=== PATIENT | female | born 1935 | race Asian ===

== ENCOUNTER 2023-12-31 16:10 | Inpatient (IN) | payer OTHER ==
[~2023-12-31] VITALS: Ht 152.4 cm; Wt 47.2 kg
[2023-12-31 16:10] VITALS: BP_SYST 144; PULSE 141; RESP 24; TEMP 97.3; O2SAT 100
[2023-12-31] MEDS ORDERED: LIP40 (16:33)
[2023-12-31] MEDS ORDERED: ASPI-859 (16:33)
[2023-12-31] MEDS ORDERED: METO25CA (16:33)
[2023-12-31] MEDS ORDERED: AMIO200T66 (16:33)
[2023-12-31] MEDS: KETOROLAC TROMETHAMINE 15 MG VIAL IVP ONE (16:47)
[2023-12-31] MEDS: NACL 0.9% 1,000 ML IV ONE (16:47)
[2023-12-31] MEDS ORDERED: RIVA15TA (16:54)
[2023-12-31] MEDS ORDERED: INSU100V26 (16:54)
[2023-12-31] MEDS ORDERED: VALS160T29 (16:54)
[2023-12-31] MEDS: IPRATROPIUM/ALBUTEROL SULFATE 3 ML AMPUL.NEB (DUONEB) INH ONE (16:57)
[2023-12-31 17:02] LABS: ABG O2 SAT% ESTIMATE 99.4 % (94.0-100.0); BLOOD GAS BASE EXCESS 4.4 mmol/L (-3.0-3.0); BLOOD GAS HCO3 26.1 mmol/L (21.0-27.0); BLOOD GAS PCO2 30.7 mmHg (35.0-45.0); BLOOD GAS PO2 178.7 mmHg (75.0-100.0)
[2023-12-31 17:06] LABS: ALLEN'S TEST POSITIVE (P); BLOOD GAS PH 7.547 (7.350-7.450)
[2023-12-31 17:13] LABS: HEMATOCRIT 29.4 % (36-48); HEMOGLOBIN 9.8 g/dL (12.0-16.0); MEAN CORPUSCULAR HEMOGLOBIN 30 pg (27-31); MEAN CORPUSCULAR HGB CONC 33 % (32-36); MEAN CORPUSCULAR VOLUME 90 fL (79.0-98.0); PLATELET COUNT (AUTO) 347 K/uL (130-430); RED BLOOD CELL COUNT(AUTO) 3.28 MIL/uL (4.2-6.2); RED CELL DISTRIBUTION WIDTH 14.9 % (9.0-15.0); WHITE BLOOD COUNT (AUTO) 20.8 K/uL (4.8-10.8)
[2023-12-31 17:29] LABS: INR 1.3 (0.8-1.2); PROTHROMBIN TIME 13.4 SECS (9.5-12.5)
[2023-12-31 17:35] LABS: ALANINE AMINOTRANSFERASE 134 U/L (12-78); ALBUMIN 1.7 g/dL (3.4-4.8); ANION GAP 4 (5-15); ASPARTATE AMINOTRANSFERASE 172 U/L (10-37); CALCIUM 7.8 mg/dL (8.4-11.0); CARBON DIOXIDE 31 mmol/L (23-29); CHLORIDE 99 mmol/L (98-107); CREATININE 1.12 mg/dL (0.55-1.30); GLUCOSE 274 mg/dL (74-106); POTASSIUM 4.7 mmol/L (3.5-5.1); SODIUM SERUM 134 mmol/L (136-145); TOTAL BILIRUBIN 1.9 mg/dL (0.0-1.0); TOTAL PROTEIN, SERUM 5.8 g/dL (6.4-8.3); UREA NITROGEN, BLOOD 32 mg/dL (8-21)
[2023-12-31] MEDS ORDERED: PIPERACILLIN/TAZOBACTAM 3.375 GM/VIAL (ZOSYN) IV ONE ×2 (18:01)
[2023-12-31 18:03] LABS: BAND % (MANUAL) 2 % (0-6); LYMPHOCYTES % (MANUAL) 8 % (20-46)
[2023-12-31 18:04] LABS: ANISOCYTOSIS 1+; BASOPHILS % (MANUAL) 0 % (0-2); EOSINOPHILS % (MANUAL) 0 % (0-7); MONOCYTES % (MANUAL) 5 % (0-11); PLATELET ESTIMATE ADEQUATE (ADEQUATE); POLYCHROMASIA 1+
[2023-12-31 18:05] LABS: OVALOCYTES FEW
[2023-12-31] MEDS: PIPERACILLIN/TAZO 3.375 GM in NS 50 ML IV ONE (18:17)
[2023-12-31] MEDS ORDERED: AZITHROMYCIN 500 MG/VIAL (ZITHROMAX) IV ONE (18:49)
[2023-12-31] MEDS: DEXAMETHASONE SOD PHOSPHATE 10 MG/ML VIAL IVP ONE (18:57)
[2023-12-31] MEDS: AZITHROMYCIN 500 MG in NS 250 ML IV ONE (18:57)
[2023-12-31 19:00] LABS: INFLUENZA TYPE A Negative (NEGATIVE); INFLUENZA TYPE B NEGATIVE (NEGATIVE)
[2023-12-31 20:30] LABS: BILIRUBIN,URINE 1+ (NEGATIVE); BLOOD, URINE 3+ (NEGATIVE); COLOR,URINE BROWN (YELLOW); GLUCOSE,URINE 1+ (NEGATIVE); KETONES,URINE NEGATIVE (NEGATIVE); LEUKOCYTE ESTERASE ,URINE TRACE (NEGATIVE); NITRITE, URINE NEGATIVE (NEGATIVE); PH,URINE 6.5 (5.0-8.0); PROTEIN URINE 1+ (NEGATIVE)
[2023-12-31] MEDS ORDERED: ONDANSETRON HCL 4 MG/2 ML VIAL IVP PRN (20:30)
[2023-12-31] MEDS ORDERED: ZOLPIDEM TARTRATE 5 MG TABLET PO PRN (20:30)
[2023-12-31] MEDS ORDERED: MUPIROCIN 2% TOPICAL OINTMENT 22 GM NS PRN (20:30)
[2023-12-31] MEDS ORDERED: ACETAMINOPHEN 325 MG TABLET PO PRN (20:30)
[2023-12-31] MEDS ORDERED: MAGNESIUM SULFATE 50 ML IV PRN (20:30)
[2023-12-31 20:41] LABS: CLARITY/URINE HAZY (CLEAR)
[2023-12-31 20:50] VITALS: BP_SYST 144; PULSE 141; O2SAT 98
[2023-12-31 20:56] LABS: RBC,URINE 20-50 /HPF (0-3)
[2023-12-31 20:57] LABS: BACTERIA,URINE MODERATE /HPF (None Seen)
[2023-12-31] MEDS ORDERED: METOPROLOL TARTRATE 25 MG TABLET ONE (21:46)
[2023-12-31] MEDS: METOPROLOL TARTRATE 50 MG TABLET PO SCH (21:49)
[2023-12-31] MEDS ORDERED: INSULIN REGULAR, HUMAN 10 UNITS/0.1 ML, 3 ML VIAL ONE (21:50)
[2023-12-31] MEDS: INSULIN REGULAR, HUMAN 100 UNITS/ML, 3 ML VIAL (humuLIN R) SUBCUT PRN (21:53)
[2023-12-31] MEDS: FUROSEMIDE 40 MG/4 ML VIAL IVP ONE (21:53)
[2023-12-31] MEDS: NACL 0.9% 1,000 ML IV SCH (22:06)
[2024-01-01] MEDS ORDERED: PIPERACILLIN/TAZOBACTAM 3.375 GM/VIAL (ZOSYN) IV ONE ×2 (02:11→16:57)
[2024-01-01] MEDS: PIPERACILLIN/TAZO 3.375 GM in D5W 50 ML IV SCH (02:27)
[2024-01-01] MEDS: LORazepam 2 MG/ML VIAL IVP PRN (06:14)
[2024-01-01 07:27] LABS: HEMATOCRIT 30.2 % (36-48); MEAN CORPUSCULAR HEMOGLOBIN 30 pg (27-31); MEAN CORPUSCULAR HGB CONC 33 % (32-36); MEAN CORPUSCULAR VOLUME 91 fL (79.0-98.0); PLATELET COUNT (AUTO) 379 K/uL (130-430); RED BLOOD CELL COUNT(AUTO) 3.32 MIL/uL (4.2-6.2); RED CELL DISTRIBUTION WIDTH 15.2 % (9.0-15.0); WHITE BLOOD COUNT (AUTO) 19.8 K/uL (4.8-10.8)
[2024-01-01 07:41] LABS: ALANINE AMINOTRANSFERASE 126 U/L (12-78); ALBUMIN 1.8 g/dL (3.4-4.8); ANION GAP 7 (5-15); ASPARTATE AMINOTRANSFERASE 132 U/L (10-37); BILIRUBIN,DIRECT 0.9 mg/dL (0.0-0.3); CARBON DIOXIDE 28 mmol/L (23-29); CHLORIDE 101 mmol/L (98-107); CREATININE 1.02 mg/dL (0.55-1.30); GLUCOSE 226 mg/dL (74-106); POTASSIUM 4.6 mmol/L (3.5-5.1); SODIUM SERUM 136 mmol/L (136-145); TOTAL BILIRUBIN 1.7 mg/dL (0.0-1.0); TOTAL PROTEIN, SERUM 5.9 g/dL (6.4-8.3); UREA NITROGEN, BLOOD 29 mg/dL (8-21)
[2024-01-01] MEDS ORDERED: ATORVASTATIN 20 MG TABLET PO SCH (09:00)
[2024-01-01] MEDS: AMIODARONE HCL 200 MG TABLET PO SCH (09:01)
[2024-01-01] MEDS: ASPIRIN 81 MG TABLET(ECOTRIN) PO SCH (09:02)
[2024-01-01] MEDS: LOSARTAN POTASSIUM 50 MG TABLET (COZAAR) PO SCH (09:02)
[2024-01-01 09:57] LABS: ANISOCYTOSIS 1+; BASOPHILS % (MANUAL) 0 % (0-2); EOSINOPHILS % (MANUAL) 0 % (0-7); LYMPHOCYTES % (MANUAL) 3 % (20-46); MONOCYTES % (MANUAL) 0 % (0-11); PLATELET ESTIMATE ADEQUATE (ADEQUATE); STOMATOCYTES FEW
[2024-01-01] MEDS ORDERED: INSULIN REGULAR, HUMAN 10 UNITS/0.1 ML, 3 ML VIAL ONE (13:20)
[2024-01-01 16:15] VITALS: O2SAT 97
[2024-01-01] MEDS: RIVAROXABAN 15 MG TABLET PO SCH (17:40)
[2024-01-01 20:00] VITALS: O2SAT 98
[2024-01-01] MEDS: VANCOMYCIN HCL 1000 MG/VIAL IV ONE (22:32)
[2024-01-01] MEDS: PIPERACILLIN/TAZOBACTAM 3.375 GM/VIAL (ZOSYN) IV ONE (22:33)
[2024-01-01] MEDS: VANCOMYCIN HCL 1 GM/NS PREMIX 250 ML IV ONE (22:36)
[2024-01-02] VITALS: BP_SYST 132; PULSE 60; RESP 16; TEMP 97.8; O2SAT 96
[2024-01-02] MEDS: MORPHINE 2 MG/ML INJ. SYRINGE IVP PRN (03:15)
[2024-01-02 05:46] LABS: ANION GAP 8 (5-15); CALCIUM 8.1 mg/dL (8.4-11.0); CARBON DIOXIDE 26 mmol/L (23-29); CHLORIDE 104 mmol/L (98-107); CREATININE 0.81 mg/dL (0.55-1.30); GLUCOSE 169 mg/dL (74-106); POTASSIUM 4.2 mmol/L (3.5-5.1); SODIUM SERUM 138 mmol/L (136-145); UREA NITROGEN, BLOOD 27 mg/dL (8-21)
[2024-01-02 05:59] LABS: BASOPHILS % (AUTO) 0.2 % (0.0-2.0); HEMOGLOBIN 10.4 g/dL (12.0-16.0); LYMPHOCYTES # (AUTO) 0.8 K/uL (1.0-5.5); LYMPHOCYTES % (AUTO) 3.1 % (20.5-51.5); MEAN CORPUSCULAR HEMOGLOBIN 30 pg (27-31); MEAN CORPUSCULAR HGB CONC 33 % (32-36); MEAN CORPUSCULAR VOLUME 92 fL (79.0-98.0); MONOCYTES # (AUTO) 0.6 K/uL (0.0-1.0); MONOCYTES % (AUTO) 2.5 % (1.7-9.3); NEUTROPHILS # (AUTO) 24.3 K/uL (1.8-7.7); PLATELET COUNT (AUTO) 423 K/uL (130-430); RED BLOOD CELL COUNT(AUTO) 3.47 MIL/uL (4.2-6.2); RED CELL DISTRIBUTION WIDTH 15.8 % (9.0-15.0); WHITE BLOOD COUNT (AUTO) 25.8 K/uL (4.8-10.8)
[2024-01-02 06:17] LABS: NEUTROPHILS % (AUTO) 94.2 % (40.0-70.0)
[2024-01-02 11:18] VITALS: O2SAT 92
[2024-01-02 11:28] VITALS: BP_SYST 114; PULSE 93; RESP 18; TEMP 97.6
[2024-01-02 17:01] VITALS: BP_SYST 129; PULSE 81; RESP 17; TEMP 97.4; O2SAT 94
[2024-01-02] MEDS: DOCUSATE SODIUM 100 MG CAPSULE PO PRN (17:42)
[2024-01-02 20:59] VITALS: BP_SYST 136; PULSE 71; RESP 18; TEMP 96.9; O2SAT 93
[2024-01-02] MEDS: VANCOMYCIN HCL 750 MG in NS 250 ML IV SCH (22:59)
[2024-01-02 23:04] VITALS: BP_SYST 136; PULSE 85; RESP 18
[2024-01-03] VITALS (7 sets, daily range): BP systolic 136–158; PULSE 68–83; RESP 16–18; TEMP 97–98.3; O2SAT 93–97
[2024-01-03 07:01] LABS: BASOPHILS % (AUTO) 0.2 % (0.0-2.0); EOSINOPHILS % (AUTO) 0.1 % (0.0-4.0); HEMATOCRIT 33.3 % (36-48); HEMOGLOBIN 10.7 g/dL (12.0-16.0); LYMPHOCYTES # (AUTO) 1.1 K/uL (1.0-5.5); LYMPHOCYTES % (AUTO) 6.3 % (20.5-51.5); MEAN CORPUSCULAR HEMOGLOBIN 30 pg (27-31); MEAN CORPUSCULAR HGB CONC 32 % (32-36); MEAN CORPUSCULAR VOLUME 93 fL (79.0-98.0); MONOCYTES # (AUTO) 0.8 K/uL (0.0-1.0); MONOCYTES % (AUTO) 4.5 % (1.7-9.3); NEUTROPHILS # (AUTO) 15.2 K/uL (1.8-7.7); PLATELET COUNT (AUTO) 467 K/uL (130-430); RED CELL DISTRIBUTION WIDTH 15.8 % (9.0-15.0); WHITE BLOOD COUNT (AUTO) 17.1 K/uL (4.8-10.8)
[2024-01-03 08:42] LABS: ANION GAP 8 (5-15); BILIRUBIN,DIRECT 0.6 mg/dL (0.0-0.3); CALCIUM 7.5 mg/dL (8.4-11.0); CARBON DIOXIDE 27 mmol/L (23-29); CHLORIDE 107 mmol/L (98-107); CREATININE 0.92 mg/dL (0.55-1.30); GLUCOSE 163 mg/dL (74-106); POTASSIUM 4.2 mmol/L (3.5-5.1); SODIUM SERUM 142 mmol/L (136-145); TOTAL BILIRUBIN 1.1 mg/dL (0.0-1.0); UREA NITROGEN, BLOOD 33 mg/dL (8-21)
[2024-01-03 08:43] LABS: ALANINE AMINOTRANSFERASE 132 U/L (12-78); ALBUMIN 1.7 g/dL (3.4-4.8); ASPARTATE AMINOTRANSFERASE 139 U/L (10-37); TOTAL PROTEIN, SERUM 5.9 g/dL (6.4-8.3)
[2024-01-03 09:19] LABS: NEUTROPHILS % (AUTO) 88.9 % (40.0-70.0)
[2024-01-03] MEDS ORDERED: HEPARIN 25,000 UNITS/D5W 250ML 250 ML IV PRN (15:00)
[2024-01-03] MEDS ORDERED: *HEPARIN PER PHARMACY XX ONE (15:00)
[2024-01-03] MEDS ORDERED: *HEPARIN PER PHARMACY XX PRN (15:00)
[2024-01-03] MEDS ORDERED: HEPARIN SODIUM,PORCINE 2000 UNITS/0.4 ML BOLUS IVP PRN (16:00)
[2024-01-03 16:19] LABS: INR 1.4 (0.8-1.2); PROTHROMBIN TIME 13.8 SECS (9.5-12.5)
[2024-01-03] MEDS: ceFAZolin SODIUM 1 GM in D5W 50 ML IV SCH (17:11)
[2024-01-04 00:47] VITALS: BP_SYST 147; PULSE 78; RESP 17; TEMP 97.3; O2SAT 98
[2024-01-04] MEDS: HEPARIN 25,000 UNITS in 250 ML PREMIX IV PRN (03:38)
[2024-01-04] MEDS: HEPARIN SODIUM,PORCINE 3000 UNITS/0.6 ML BOLUS IVP PRN (03:46)
[2024-01-04 06:03] LABS: BASOPHILS # (AUTO) 0.1 K/uL (0.0-0.2); BASOPHILS % (AUTO) 0.5 % (0.0-2.0); EOSINOPHILS # (AUTO) 0.2 K/uL (0.0-0.4); EOSINOPHILS % (AUTO) 1.2 % (0.0-4.0); HEMATOCRIT 33.9 % (36-48); HEMOGLOBIN 11.1 g/dL (12.0-16.0); LYMPHOCYTES # (AUTO) 1.2 K/uL (1.0-5.5); LYMPHOCYTES % (AUTO) 6.8 % (20.5-51.5); MEAN CORPUSCULAR HEMOGLOBIN 30 pg (27-31); MEAN CORPUSCULAR HGB CONC 33 % (32-36); MEAN CORPUSCULAR VOLUME 93 fL (79.0-98.0); MONOCYTES # (AUTO) 0.6 K/uL (0.0-1.0); MONOCYTES % (AUTO) 3.5 % (1.7-9.3); NEUTROPHILS # (AUTO) 15.6 K/uL (1.8-7.7); PLATELET COUNT (AUTO) 481 K/uL (130-430); RED BLOOD CELL COUNT(AUTO) 3.66 MIL/uL (4.2-6.2); WHITE BLOOD COUNT (AUTO) 17.7 K/uL (4.8-10.8)
[2024-01-04 06:38] LABS: ANION GAP 5 (5-15); CALCIUM 7.7 mg/dL (8.4-11.0); CARBON DIOXIDE 29 mmol/L (23-29); CHLORIDE 108 mmol/L (98-107); CREATININE 0.86 mg/dL (0.55-1.30); GLUCOSE 119 mg/dL (74-106); POTASSIUM 4.1 mmol/L (3.5-5.1); SODIUM SERUM 142 mmol/L (136-145); UREA NITROGEN, BLOOD 25 mg/dL (8-21)
[2024-01-04 08:00] VITALS: BP_SYST 152; PULSE 80; RESP 16; TEMP 97.7; O2SAT 97
[2024-01-04 13:14] VITALS: BP_SYST 162; PULSE 76; RESP 20; TEMP 97.7; O2SAT 98
[2024-01-04 16:35] VITALS: BP_SYST 164; PULSE 59; RESP 16; TEMP 97.5; O2SAT 96
[2024-01-04 20:25] VITALS: BP_SYST 155; PULSE 77; RESP 18; TEMP 96.8; O2SAT 98
[2024-01-04] MEDS: traZODone HCL 50 MG TABLET (DESYREL) PO SCH (21:30)
[2024-01-04] MEDS: LOSARTAN POTASSIUM 50 MG TABLET (COZAAR) PO SCH (21:30)
[2024-01-05] VITALS (7 sets, daily range): BP systolic 148–168; PULSE 66–76; RESP 14–18; TEMP 97.3–98.4; O2SAT 91–99
[2024-01-05 06:04] LABS: BASOPHILS # (AUTO) 0.1 K/uL (0.0-0.2); BASOPHILS % (AUTO) 0.5 % (0.0-2.0); EOSINOPHILS # (AUTO) 0.1 K/uL (0.0-0.4); EOSINOPHILS % (AUTO) 0.8 % (0.0-4.0); HEMATOCRIT 33.3 % (36-48); LYMPHOCYTES # (AUTO) 1.1 K/uL (1.0-5.5); MEAN CORPUSCULAR HEMOGLOBIN 30 pg (27-31); MEAN CORPUSCULAR HGB CONC 33 % (32-36); MEAN CORPUSCULAR VOLUME 92 fL (79.0-98.0); MONOCYTES # (AUTO) 0.4 K/uL (0.0-1.0); MONOCYTES % (AUTO) 2.7 % (1.7-9.3); NEUTROPHILS # (AUTO) 14.3 K/uL (1.8-7.7); PLATELET COUNT (AUTO) 433 K/uL (130-430); RED BLOOD CELL COUNT(AUTO) 3.62 MIL/uL (4.2-6.2); WHITE BLOOD COUNT (AUTO) 16.1 K/uL (4.8-10.8)
[2024-01-05 06:28] LABS: ANION GAP 6 (5-15); CALCIUM 7.8 mg/dL (8.4-11.0); CARBON DIOXIDE 29 mmol/L (23-29); CHLORIDE 105 mmol/L (98-107); CREATININE 0.78 mg/dL (0.55-1.30); GLUCOSE 200 mg/dL (74-106); SODIUM SERUM 140 mmol/L (136-145); UREA NITROGEN, BLOOD 21 mg/dL (8-21)
[2024-01-05] MEDS ORDERED: LIDOCAINE 1% 10 MG/ML, 20 ML MDV ONE (07:55)
[2024-01-05] MEDS: *HEPARIN PER PHARMACY XX ONE (15:45)
[2024-01-05] MEDS ORDERED: HEPARIN SODIUM,PORCINE 2000 UNITS/0.4 ML BOLUS IVP PRN (16:15)
[2024-01-05] MEDS ORDERED: HEPARIN SODIUM,PORCINE 3000 UNITS/0.6 ML BOLUS IVP PRN ×2 (16:15)
[2024-01-05] MEDS ORDERED: *HEPARIN PER PHARMACY XX PRN (16:15)
[2024-01-05] MEDS: HEPARIN 25,000 UNITS/D5W 250ML 250 ML IV PRN (16:58)
[2024-01-06] VITALS (8 sets, daily range): BP systolic 115–158; PULSE 53–85; RESP 14–18; TEMP 96.6–97.8; O2SAT 85–99
[2024-01-06 06:55] LABS: BASOPHILS % (AUTO) 0.2 % (0.0-2.0); EOSINOPHILS # (AUTO) 0.1 K/uL (0.0-0.4); EOSINOPHILS % (AUTO) 0.3 % (0.0-4.0); HEMATOCRIT 35.7 % (36-48); HEMOGLOBIN 11.5 g/dL (12.0-16.0); LYMPHOCYTES # (AUTO) 0.9 K/uL (1.0-5.5); LYMPHOCYTES % (AUTO) 5.3 % (20.5-51.5); MEAN CORPUSCULAR HEMOGLOBIN 30 pg (27-31); MEAN CORPUSCULAR HGB CONC 32 % (32-36); MEAN CORPUSCULAR VOLUME 94 fL (79.0-98.0); MONOCYTES # (AUTO) 0.4 K/uL (0.0-1.0); MONOCYTES % (AUTO) 2.5 % (1.7-9.3); NEUTROPHILS # (AUTO) 15.4 K/uL (1.8-7.7); NEUTROPHILS % (AUTO) 91.7 % (40.0-70.0); PLATELET COUNT (AUTO) 456 K/uL (130-430); RED BLOOD CELL COUNT(AUTO) 3.81 MIL/uL (4.2-6.2); RED CELL DISTRIBUTION WIDTH 16.3 % (9.0-15.0); WHITE BLOOD COUNT (AUTO) 16.8 K/uL (4.8-10.8)
[2024-01-06 07:43] LABS: ALANINE AMINOTRANSFERASE 44 U/L (12-78); ALBUMIN 1.8 g/dL (3.4-4.8); ANION GAP 7 (5-15); ASPARTATE AMINOTRANSFERASE 47 U/L (10-37); CARBON DIOXIDE 29 mmol/L (23-29); CHLORIDE 106 mmol/L (98-107); CREATININE 0.65 mg/dL (0.55-1.30); GLUCOSE 149 mg/dL (74-106); POTASSIUM 3.9 mmol/L (3.5-5.1); SODIUM SERUM 142 mmol/L (136-145); TOTAL PROTEIN, SERUM 6.4 g/dL (6.4-8.3); UREA NITROGEN, BLOOD 19 mg/dL (8-21)
[2024-01-06] MEDS: D5/0.45 NS 1,000 ML IV SCH (09:36)
[2024-01-06] MEDS ORDERED: LIDOCAINE MPF 2% 5mL VIAL INJ ONE (12:34)
[2024-01-06] MEDS ORDERED: HYDROmorphone 1 MG/ML INJ. CARTRIDGE IVP PRN ×2 (13:15)
[2024-01-06] MEDS ORDERED: LABETALOL 100 MG/ 20ML VIAL IVP PRN (13:15)
[2024-01-06] MEDS: NACL 0.9% 1,000 ML IV SCH (13:15)
[2024-01-06] MEDS ORDERED: ONDANSETRON HCL 4 MG/2 ML VIAL IVP PRN (13:15)
[2024-01-06] MEDS ORDERED: MEPERIDINE HCL/PF 25 MG/ML DISP.SYRIN IVP PRN (13:15)
[2024-01-06] MEDS: ASCORBIC ACID 500 MG TABLET PO SCH (21:00)
[2024-01-07] VITALS (8 sets, daily range): BP systolic 123–142; PULSE 77–104; RESP 16–20; TEMP 97–98.4; O2SAT 97–99
[2024-01-07] MEDS: HYDROcodone/ACETAMIN 5-325 MG TAB (NORCO/ VICODIN) PO PRN (02:37)
[2024-01-07] MEDS ORDERED: NALOXONE HCL 0.4 MG/ML AMP (NARCAN) IVP PRN (05:00)
[2024-01-07] MEDS: HYDROcodone/ACETAMIN 10-325 MG TAB PO PRN (05:13)
[2024-01-07 06:42] LABS: BASOPHILS % (AUTO) 0.1 % (0.0-2.0); EOSINOPHILS # (AUTO) 0.1 K/uL (0.0-0.4); EOSINOPHILS % (AUTO) 0.5 % (0.0-4.0); HEMATOCRIT 32.1 % (36-48); HEMOGLOBIN 10.4 g/dL (12.0-16.0); LYMPHOCYTES # (AUTO) 0.8 K/uL (1.0-5.5); LYMPHOCYTES % (AUTO) 6.7 % (20.5-51.5); MEAN CORPUSCULAR HEMOGLOBIN 31 pg (27-31); MEAN CORPUSCULAR HGB CONC 32 % (32-36); MEAN CORPUSCULAR VOLUME 95 fL (79.0-98.0); MONOCYTES # (AUTO) 0.5 K/uL (0.0-1.0); NEUTROPHILS # (AUTO) 10.3 K/uL (1.8-7.7); NEUTROPHILS % (AUTO) 88.7 % (40.0-70.0); PLATELET COUNT (AUTO) 405 K/uL (130-430); RED BLOOD CELL COUNT(AUTO) 3.37 MIL/uL (4.2-6.2); RED CELL DISTRIBUTION WIDTH 16.4 % (9.0-15.0)
[2024-01-07 07:01] LABS: ANION GAP 8 (5-15); CALCIUM 8.1 mg/dL (8.4-11.0); CARBON DIOXIDE 27 mmol/L (23-29); CHLORIDE 106 mmol/L (98-107); GLUCOSE 160 mg/dL (74-106); POTASSIUM 3.9 mmol/L (3.5-5.1); SODIUM SERUM 141 mmol/L (136-145); UREA NITROGEN, BLOOD 18 mg/dL (8-21)
[2024-01-07 08:13] LABS: WHITE BLOOD COUNT (AUTO) 11.7 K/uL (4.8-10.8)
[2024-01-07] MEDS: AMIODARONE HCL 200 MG TABLET PO SCH (08:58)
[2024-01-07] MEDS: FUROSEMIDE 20 MG/2 ML VIAL IVP ONE (18:00)
[2024-01-07] MEDS: IPRATROPIUM/ALBUTEROL SULFATE 3 ML AMPUL.NEB (DUONEB) INH SCH (20:03)
[2024-01-08] VITALS (11 sets, daily range): BP systolic 125–146; PULSE 73–80; RESP 16–18; TEMP 97–98.8; O2SAT 93–100
[2024-01-08 07:25] LABS: ANION GAP 3 (5-15); CALCIUM 7.5 mg/dL (8.4-11.0); CARBON DIOXIDE 31 mmol/L (23-29); CHLORIDE 109 mmol/L (98-107); CREATININE 0.77 mg/dL (0.55-1.30); GLUCOSE 172 mg/dL (74-106); POTASSIUM 3.9 mmol/L (3.5-5.1); SODIUM SERUM 143 mmol/L (136-145); UREA NITROGEN, BLOOD 19 mg/dL (8-21)
[2024-01-08 08:12] LABS: BASOPHILS % (AUTO) 0.2 % (0.0-2.0); EOSINOPHILS # (AUTO) 0.2 K/uL (0.0-0.4); EOSINOPHILS % (AUTO) 1.4 % (0.0-4.0); HEMOGLOBIN 9.7 g/dL (12.0-16.0); LYMPHOCYTES # (AUTO) 0.8 K/uL (1.0-5.5); LYMPHOCYTES % (AUTO) 6.8 % (20.5-51.5); MEAN CORPUSCULAR HEMOGLOBIN 31 pg (27-31); MEAN CORPUSCULAR HGB CONC 32 % (32-36); MEAN CORPUSCULAR VOLUME 94 fL (79.0-98.0); MONOCYTES # (AUTO) 0.7 K/uL (0.0-1.0); MONOCYTES % (AUTO) 6.1 % (1.7-9.3); NEUTROPHILS # (AUTO) 9.4 K/uL (1.8-7.7); NEUTROPHILS % (AUTO) 85.5 % (40.0-70.0); PLATELET COUNT (AUTO) 322 K/uL (130-430); RED BLOOD CELL COUNT(AUTO) 3.18 MIL/uL (4.2-6.2); RED CELL DISTRIBUTION WIDTH 16.6 % (9.0-15.0)
[2024-01-08] MEDS: RIVAROXABAN 15 MG TABLET PO SCH (17:45)
[2024-01-09] VITALS (17 sets, daily range): BP systolic 125–177; PULSE 73–93; RESP 14–17; TEMP 96.1–98.6; O2SAT 92–100
[2024-01-09 05:52] LABS: BASOPHILS % (AUTO) 0.3 % (0.0-2.0); EOSINOPHILS % (AUTO) 0.2 % (0.0-4.0); HEMATOCRIT 30.2 % (36-48); HEMOGLOBIN 9.9 g/dL (12.0-16.0); LYMPHOCYTES # (AUTO) 0.7 K/uL (1.0-5.5); LYMPHOCYTES % (AUTO) 4.7 % (20.5-51.5); MEAN CORPUSCULAR HEMOGLOBIN 31 pg (27-31); MEAN CORPUSCULAR HGB CONC 33 % (32-36); MEAN CORPUSCULAR VOLUME 95 fL (79.0-98.0); MONOCYTES # (AUTO) 0.6 K/uL (0.0-1.0); MONOCYTES % (AUTO) 4.3 % (1.7-9.3); NEUTROPHILS # (AUTO) 13.3 K/uL (1.8-7.7); NEUTROPHILS % (AUTO) 90.5 % (40.0-70.0); PLATELET COUNT (AUTO) 294 K/uL (130-430); RED BLOOD CELL COUNT(AUTO) 3.19 MIL/uL (4.2-6.2); RED CELL DISTRIBUTION WIDTH 17.1 % (9.0-15.0); WHITE BLOOD COUNT (AUTO) 14.7 K/uL (4.8-10.8)
[2024-01-09 06:03] LABS: ANION GAP 7 (5-15); CALCIUM 7.7 mg/dL (8.4-11.0); CARBON DIOXIDE 29 mmol/L (23-29); CHLORIDE 104 mmol/L (98-107); CREATININE 0.85 mg/dL (0.55-1.30); GLUCOSE 215 mg/dL (74-106); SODIUM SERUM 140 mmol/L (136-145); UREA NITROGEN, BLOOD 16 mg/dL (8-21)
[2024-01-09] MEDS: POTASSIUM CHLORIDE 20 MEQ TABLET.ER PO PRN (10:02)
[2024-01-09 11:11] LABS: ABG O2 SAT% ESTIMATE 97.6 % (94.0-100.0); BLOOD GAS BASE EXCESS 3.7 mmol/L (-3.0-3.0); BLOOD GAS HCO3 30.5 mmol/L (21.0-27.0); BLOOD GAS PH 7.366 (7.350-7.450); BLOOD GAS PO2 105.1 mmHg (75.0-100.0)
[2024-01-09 11:21] LABS: BLOOD GAS PCO2 54.5 mmHg (35.0-45.0)
[2024-01-09] MEDS: hydrALAZINE HCL 20 MG/ML VIAL IVP PRN (17:36)
[2024-01-09] MEDS: FUROSEMIDE 40 MG TABLET PO ONE (19:20)
[2024-01-10] VITALS (30 sets, daily range): BP systolic 122–186; PULSE 74–96; RESP 14–22; TEMP 97.1–97.4; O2SAT 93–100
[2024-01-10 06:31] LABS: BASOPHILS # (AUTO) 0.1 K/uL (0.0-0.2); BASOPHILS % (AUTO) 0.4 % (0.0-2.0); EOSINOPHILS % (AUTO) 0.1 % (0.0-4.0); HEMATOCRIT 29.9 % (36-48); HEMOGLOBIN 9.8 g/dL (12.0-16.0); LYMPHOCYTES # (AUTO) 0.7 K/uL (1.0-5.5); LYMPHOCYTES % (AUTO) 4.6 % (20.5-51.5); MEAN CORPUSCULAR HEMOGLOBIN 31 pg (27-31); MEAN CORPUSCULAR HGB CONC 33 % (32-36); MEAN CORPUSCULAR VOLUME 95 fL (79.0-98.0); MONOCYTES # (AUTO) 0.6 K/uL (0.0-1.0); NEUTROPHILS # (AUTO) 13.4 K/uL (1.8-7.7); NEUTROPHILS % (AUTO) 90.9 % (40.0-70.0); PLATELET COUNT (AUTO) 316 K/uL (130-430); RED BLOOD CELL COUNT(AUTO) 3.16 MIL/uL (4.2-6.2); RED CELL DISTRIBUTION WIDTH 18.9 % (9.0-15.0); WHITE BLOOD COUNT (AUTO) 14.7 K/uL (4.8-10.8)
[2024-01-10 06:47] LABS: ANION GAP 5 (5-15); CALCIUM 7.5 mg/dL (8.4-11.0); CARBON DIOXIDE 31 mmol/L (23-29); CHLORIDE 104 mmol/L (98-107); CREATININE 0.92 mg/dL (0.55-1.30); GLUCOSE 177 mg/dL (74-106); SODIUM SERUM 140 mmol/L (136-145); UREA NITROGEN, BLOOD 17 mg/dL (8-21)
[2024-01-10 19:22] LABS: INR 1.1 (0.8-1.2); PROTHROMBIN TIME 10.9 SECS (9.5-12.5)
[2024-01-11] VITALS (28 sets, daily range): BP systolic 96–160; PULSE 70–88; RESP 16–30; TEMP 97.2–98.7; O2SAT 20–99
[2024-01-11] MEDS: PIPERACILLIN/TAZOBACTAM 3.375 GM/VIAL (ZOSYN) IV ONE (00:03)
[2024-01-11] MEDS: PIPERACILLIN/TAZO 3.375 GM in D5W 50 ML IV SCH (00:16)
[2024-01-11 04:24] LABS: BASOPHILS % (AUTO) 0.2 % (0.0-2.0); HEMATOCRIT 29.9 % (36-48); HEMOGLOBIN 9.7 g/dL (12.0-16.0); LYMPHOCYTES # (AUTO) 0.4 K/uL (1.0-5.5); LYMPHOCYTES % (AUTO) 1.6 % (20.5-51.5); MEAN CORPUSCULAR HEMOGLOBIN 31 pg (27-31); MEAN CORPUSCULAR HGB CONC 33 % (32-36); MEAN CORPUSCULAR VOLUME 95 fL (79.0-98.0); MONOCYTES # (AUTO) 0.6 K/uL (0.0-1.0); MONOCYTES % (AUTO) 2.2 % (1.7-9.3); NEUTROPHILS # (AUTO) 24.3 K/uL (1.8-7.7); PLATELET COUNT (AUTO) 316 K/uL (130-430); RED BLOOD CELL COUNT(AUTO) 3.14 MIL/uL (4.2-6.2); WHITE BLOOD COUNT (AUTO) 25.3 K/uL (4.8-10.8)
[2024-01-11 04:54] LABS: ANION GAP 8 (5-15); CALCIUM 7.4 mg/dL (8.4-11.0); CARBON DIOXIDE 29 mmol/L (23-29); CHLORIDE 105 mmol/L (98-107); CREATININE 0.91 mg/dL (0.55-1.30); GLUCOSE 169 mg/dL (74-106); SODIUM SERUM 142 mmol/L (136-145); UREA NITROGEN, BLOOD 23 mg/dL (8-21)
[2024-01-11 05:02] LABS: INR 1.1 (0.8-1.2); PROTHROMBIN TIME 10.9 SECS (9.5-12.5)
[2024-01-11 08:07] LABS: HEPATITIS A AB, IgM Negative (Negative); HEPATITIS B CORE AB, IgM Negative (Negative); HEPATITIS B SURFACE AG Negative (Negative); HEPATITIS C VIRUS AB Non Reactive (Non Reactive)
[2024-01-11] MEDS: FUROSEMIDE 20 MG/2 ML VIAL IVP ONE (09:04)
[2024-01-11 12:36] LABS: SOURCE/TYPE ,BODY FLUID THORACENTESIS
[2024-01-11 12:37] LABS: BF APPEARANCE UNSPUN CLEAR (CLEAR); BODY FLUID COLOR YELLOW (LT YELLOW); BODY FLUID SOURCE/ TYPE THORACENTESIS; BODY FLUID TOTAL VOLUME 1325 mL; LYMPHOCYTES, BODY FLUID 31 %; MONOCYTES,BODY FLUID 1 %
[2024-01-11 12:49] LABS: NEUTROPHIL, BODY FLUID 68 %
[2024-01-11 12:52] LABS: WBC, BODY FLUID 88 /uL
[2024-01-11 12:53] LABS: RBC, BODY FLUID 5 /uL
[2024-01-11] MEDS: D5NS 1,000 ML IV SCH (14:15)
[2024-01-11] MEDS ORDERED: *LOVENOX0.75MG/KG Q12H/PHARMACY XX PRN (15:15)
[2024-01-11] MEDS: IPRATROPIUM BROM 0.5 MG/2.5 ML VIAL.NEB (ATROVENT) INH PRN (15:32)
[2024-01-11] MEDS ORDERED: iohexoL 350 mgI/mL, 100 ML INFUS..BTL IV ONE (17:47)
[2024-01-11 20:16] LABS: BODY FLUID GLUCOSE 176 mg/dL
[2024-01-11] MEDS: ENOXAPARIN SODIUM 40 MG/0.4 ML SYRINGE SUBCUT SCH (21:04)
[2024-01-12] VITALS (22 sets, daily range): BP systolic 98–137; PULSE 15–98; RESP 18–28; TEMP 97.4–98.6; O2SAT 94–98
[2024-01-12 04:56] LABS: BASOPHILS % (AUTO) 0.1 % (0.0-2.0); EOSINOPHILS % (AUTO) 0.1 % (0.0-4.0); HEMATOCRIT 29.1 % (36-48); HEMOGLOBIN 9.6 g/dL (12.0-16.0); LYMPHOCYTES # (AUTO) 0.5 K/uL (1.0-5.5); MEAN CORPUSCULAR HEMOGLOBIN 31 pg (27-31); MEAN CORPUSCULAR HGB CONC 33 % (32-36); MEAN CORPUSCULAR VOLUME 95 fL (79.0-98.0); MONOCYTES # (AUTO) 0.7 K/uL (0.0-1.0); MONOCYTES % (AUTO) 3.7 % (1.7-9.3); NEUTROPHILS # (AUTO) 16.6 K/uL (1.8-7.7); NEUTROPHILS % (AUTO) 93.1 % (40.0-70.0); PLATELET COUNT (AUTO) 277 K/uL (130-430); RED BLOOD CELL COUNT(AUTO) 3.08 MIL/uL (4.2-6.2); WHITE BLOOD COUNT (AUTO) 17.9 K/uL (4.8-10.8)
[2024-01-12 05:38] LABS: ALANINE AMINOTRANSFERASE 13 U/L (12-78); ALBUMIN 1.2 g/dL (3.4-4.8); ANION GAP 8 (5-15); ASPARTATE AMINOTRANSFERASE 56 U/L (10-37); CALCIUM 7.2 mg/dL (8.4-11.0); CARBON DIOXIDE 30 mmol/L (23-29); CHLORIDE 105 mmol/L (98-107); CREATININE 1.06 mg/dL (0.55-1.30); GLUCOSE 338 mg/dL (74-106); POTASSIUM 3.2 mmol/L (3.5-5.1); SODIUM SERUM 143 mmol/L (136-145); TOTAL BILIRUBIN 0.4 mg/dL (0.0-1.0); TOTAL PROTEIN, SERUM 4.3 g/dL (6.4-8.3); UREA NITROGEN, BLOOD 27 mg/dL (8-21)
[2024-01-12] MEDS: POTASSIUM CHLORIDE 40 MEQ in NS 250 ML IV ONE (12:57)
[2024-01-12] MEDS: MUPIROCIN 2% TOPICAL OINTMENT 22 GM TP ONE (21:05)
[2024-01-13] VITALS (16 sets, daily range): BP systolic 75–153; PULSE 75–84; RESP 16–25; TEMP 96.3–98; O2SAT 94–98
[2024-01-13 05:05] LABS: BASOPHILS % (AUTO) 0.1 % (0.0-2.0); EOSINOPHILS % (AUTO) 0.3 % (0.0-4.0); HEMATOCRIT 28.9 % (36-48); HEMOGLOBIN 9.4 g/dL (12.0-16.0); LYMPHOCYTES # (AUTO) 0.6 K/uL (1.0-5.5); LYMPHOCYTES % (AUTO) 4.4 % (20.5-51.5); MEAN CORPUSCULAR HEMOGLOBIN 31 pg (27-31); MEAN CORPUSCULAR HGB CONC 32 % (32-36); MEAN CORPUSCULAR VOLUME 96 fL (79.0-98.0); MONOCYTES # (AUTO) 0.8 K/uL (0.0-1.0); MONOCYTES % (AUTO) 5.7 % (1.7-9.3); NEUTROPHILS # (AUTO) 13.2 K/uL (1.8-7.7); NEUTROPHILS % (AUTO) 89.5 % (40.0-70.0); PLATELET COUNT (AUTO) 283 K/uL (130-430); RED BLOOD CELL COUNT(AUTO) 3.02 MIL/uL (4.2-6.2); RED CELL DISTRIBUTION WIDTH 19.4 % (9.0-15.0); WHITE BLOOD COUNT (AUTO) 14.8 K/uL (4.8-10.8)
[2024-01-13 05:14] LABS: ANION GAP 6 (5-15); CALCIUM 7.4 mg/dL (8.4-11.0); CARBON DIOXIDE 29 mmol/L (23-29); CHLORIDE 108 mmol/L (98-107); CREATININE 0.95 mg/dL (0.55-1.30); GLUCOSE 289 mg/dL (74-106); POTASSIUM 3.6 mmol/L (3.5-5.1); SODIUM SERUM 143 mmol/L (136-145); UREA NITROGEN, BLOOD 26 mg/dL (8-21)
[2024-01-13] MEDS: HYDROcodone/ACETAMIN 10-325 MG TAB PO PRN (10:02)
[2024-01-13] MEDS: MUPIROCIN 2% TOPICAL OINTMENT 22 GM TP SCH (10:04)
[2024-01-13] MEDS ORDERED: COMMUNICATION ORDER XX ONE (12:45)
[2024-01-14] VITALS (11 sets, daily range): BP systolic 127–150; PULSE 70–80; RESP 16–18; TEMP 96.3–98.1; O2SAT 94–98
[2024-01-14 06:17] LABS: BASOPHILS % (AUTO) 0.1 % (0.0-2.0); EOSINOPHILS % (AUTO) 0.4 % (0.0-4.0); HEMATOCRIT 30.3 % (36-48); HEMOGLOBIN 9.7 g/dL (12.0-16.0); LYMPHOCYTES # (AUTO) 0.8 K/uL (1.0-5.5); LYMPHOCYTES % (AUTO) 7.4 % (20.5-51.5); MEAN CORPUSCULAR HEMOGLOBIN 30 pg (27-31); MEAN CORPUSCULAR HGB CONC 32 % (32-36); MEAN CORPUSCULAR VOLUME 95 fL (79.0-98.0); MONOCYTES # (AUTO) 0.5 K/uL (0.0-1.0); MONOCYTES % (AUTO) 4.9 % (1.7-9.3); NEUTROPHILS # (AUTO) 9.7 K/uL (1.8-7.7); NEUTROPHILS % (AUTO) 87.2 % (40.0-70.0); PLATELET COUNT (AUTO) 289 K/uL (130-430); WHITE BLOOD COUNT (AUTO) 11.1 K/uL (4.8-10.8)
[2024-01-14 06:25] LABS: ANION GAP 7 (5-15); CARBON DIOXIDE 29 mmol/L (23-29); CHLORIDE 105 mmol/L (98-107); CREATININE 1.06 mg/dL (0.55-1.30); GLUCOSE 189 mg/dL (74-106); POTASSIUM 4.2 mmol/L (3.5-5.1); SODIUM SERUM 141 mmol/L (136-145); UREA NITROGEN, BLOOD 28 mg/dL (8-21)
[2024-01-15] VITALS (12 sets, daily range): BP systolic 113–146; PULSE 71–84; RESP 16–20; TEMP 96.6–97.3; O2SAT 93–98
[2024-01-15 09:47] LABS: BASOPHILS % (AUTO) 0.1 % (0.0-2.0); EOSINOPHILS # (AUTO) 0.1 K/uL (0.0-0.4); EOSINOPHILS % (AUTO) 0.9 % (0.0-4.0); HEMATOCRIT 34.3 % (36-48); LYMPHOCYTES # (AUTO) 0.8 K/uL (1.0-5.5); LYMPHOCYTES % (AUTO) 8.1 % (20.5-51.5); MEAN CORPUSCULAR HEMOGLOBIN 31 pg (27-31); MEAN CORPUSCULAR HGB CONC 32 % (32-36); MEAN CORPUSCULAR VOLUME 96 fL (79.0-98.0); MONOCYTES # (AUTO) 0.6 K/uL (0.0-1.0); NEUTROPHILS # (AUTO) 8.3 K/uL (1.8-7.7); NEUTROPHILS % (AUTO) 84.9 % (40.0-70.0); PLATELET COUNT (AUTO) 280 K/uL (130-430); RED BLOOD CELL COUNT(AUTO) 3.59 MIL/uL (4.2-6.2); RED CELL DISTRIBUTION WIDTH 19.6 % (9.0-15.0); WHITE BLOOD COUNT (AUTO) 9.8 K/uL (4.8-10.8)
[2024-01-15] MEDS: MILK OF MAGNESIA 30 ML UDC PO ONE (09:47)
[2024-01-15 10:01] LABS: ANION GAP 7 (5-15); CALCIUM 8.3 mg/dL (8.4-11.0); CARBON DIOXIDE 29 mmol/L (23-29); CHLORIDE 105 mmol/L (98-107); GLUCOSE 146 mg/dL (74-106); SODIUM SERUM 141 mmol/L (136-145); UREA NITROGEN, BLOOD 27 mg/dL (8-21)
[2024-01-16] VITALS (10 sets, daily range): BP systolic 103–152; PULSE 73–81; RESP 17–19; TEMP 97–98.2; O2SAT 95–100
[2024-01-16 04:37] LABS: BASOPHILS % (AUTO) 0.3 % (0.0-2.0); EOSINOPHILS # (AUTO) 0.1 K/uL (0.0-0.4); EOSINOPHILS % (AUTO) 1.7 % (0.0-4.0); HEMATOCRIT 30.8 % (36-48); HEMOGLOBIN 9.9 g/dL (12.0-16.0); LYMPHOCYTES # (AUTO) 0.7 K/uL (1.0-5.5); LYMPHOCYTES % (AUTO) 8.9 % (20.5-51.5); MEAN CORPUSCULAR HEMOGLOBIN 31 pg (27-31); MEAN CORPUSCULAR HGB CONC 32 % (32-36); MEAN CORPUSCULAR VOLUME 95 fL (79.0-98.0); MONOCYTES # (AUTO) 0.6 K/uL (0.0-1.0); MONOCYTES % (AUTO) 6.8 % (1.7-9.3); NEUTROPHILS # (AUTO) 6.8 K/uL (1.8-7.7); NEUTROPHILS % (AUTO) 82.3 % (40.0-70.0); PLATELET COUNT (AUTO) 272 K/uL (130-430); RED BLOOD CELL COUNT(AUTO) 3.23 MIL/uL (4.2-6.2); WHITE BLOOD COUNT (AUTO) 8.2 K/uL (4.8-10.8)
[2024-01-16 05:16] LABS: ALANINE AMINOTRANSFERASE 37 U/L (12-78); ALBUMIN 1.3 g/dL (3.4-4.8); ANION GAP 6 (5-15); ASPARTATE AMINOTRANSFERASE 64 U/L (10-37); CALCIUM 7.9 mg/dL (8.4-11.0); CARBON DIOXIDE 30 mmol/L (23-29); CHLORIDE 104 mmol/L (98-107); GLUCOSE 154 mg/dL (74-106); POTASSIUM 4.3 mmol/L (3.5-5.1); SODIUM SERUM 140 mmol/L (136-145); TOTAL BILIRUBIN 0.4 mg/dL (0.0-1.0); TOTAL PROTEIN, SERUM 5.3 g/dL (6.4-8.3); UREA NITROGEN, BLOOD 26 mg/dL (8-21)
[2024-01-16 10:03] LABS: INR 0.9 (0.8-1.2); PROTHROMBIN TIME 9.8 SECS (9.5-12.5)
== END 2024-01-16 16:40 | DRG 853 ==
LOC: SED 16:10 → STU 19:16 → SMU 01-08 10:24 → SIC 01-09 15:41 → STU 01-13 18:14
PROVIDERS: ADMIT General Practice; ATTEND General Practice
PROC: 0Y6J0Z3 Detachment at Left Lower Leg, Low, Open Approach (ICD-10-PCS; principal; 2024-01-06 12:44)
PROC: 02HV33Z Insertion of Infusion Device into Superior Vena Cava, Percutaneous Approach (ICD-10-PCS; 2024-01-10)
PROC: 0W9B3ZZ Drainage of Left Pleural Cavity, Percutaneous Approach (ICD-10-PCS; 2024-01-11)
PROC: 0W993ZZ Drainage of Right Pleural Cavity, Percutaneous Approach (ICD-10-PCS; 2024-01-16)
DX: A41.01 Sepsis due to Methicillin susceptible Staphylococcus aureus (principal); E43 Unspecified severe protein-calorie malnutrition; J69.0 Pneumonitis due to inhalation of food and vomit; G93.41 Metabolic encephalopathy; J96.01 Acute respiratory failure with hypoxia; E11.52 Type 2 diabetes mellitus with diabetic peripheral angiopathy with gangrene; I48.20 Chronic atrial fibrillation, unspecified; J90 Pleural effusion, not elsewhere classified; N39.0 Urinary tract infection, site not specified; I96 Gangrene, not elsewhere classified; Z20.822 Contact with and (suspected) exposure to COVID-19; E11.621 Type 2 diabetes mellitus with foot ulcer; E78.5 Hyperlipidemia, unspecified; E11.65 Type 2 diabetes mellitus with hyperglycemia; F03.90 Unspecified dementia, unspecified severity, without behavioral disturbance, psychotic disturbance, mood disturbance, and anxiety; I10 Essential (primary) hypertension; J45.909 Unspecified asthma, uncomplicated; L97.529 Non-pressure chronic ulcer of other part of left foot with unspecified severity; Z74.01 Bed confinement status; Z79.01 Long term (current) use of anticoagulants; Z90.710 Acquired absence of both cervix and uterus; Z89.512 Acquired absence of left leg below knee; Z86.73 Personal history of transient ischemic attack (TIA), and cerebral infarction without residual deficits; Z79.899 Other long term (current) drug therapy; Z79.82 Long term (current) use of aspirin; Z79.4 Long term (current) use of insulin; Z68.20 Body mass index [BMI] 20.0-20.9, adult
CPT/HCPCS: 32555; 36415; 36600; 71045; 71275; 73502; 76604; 76700; 80048; 80053; 80074; 80076; 81000; 81001; 81015; 82803; 82947; 82948; 83037; 83605; 83735; 83880; 84157; 84484; 85007; 85025; 85027; 85610; 85730; 86886; 86900; 86901; 87040; 87070; 87081; 87086; 87116; 87186; 88108; 88307; 89051; 89060; 92610-GN; 93005; 93306; 93923; 93971; 94070; 94640; 94660; 94664; 94760; 97110-GP; 97112-GP; 97163-GP; 97530-GP; 97760-GP; 99291; G0378; J0360; J0456; J0690; J1100; J1644; J1650; J1815; J1885; J1940; J2001; J2060; J2270; J2370; J2405; J2543; J2704; J3010; J3370; J3480; J3490; J7030; J7050; J7060; Q9967